=== PATIENT | female | born 1960 | race Caucasian/White ===

== ENCOUNTER → 2016-10-29 | Outpatient (CLI) | payer OTHER ==
[~2016-10-29] MED LIST: ALBU18HF INH; AMLO10TA2 PO; CEFD300C37 PO; CEPH-367 PO; DOXY50CA4 PO; IPRA3AMP NPPB; LEVO50TA5 PO; LEVO750T26 PO; LISI-167 PO; METH4TAB2 PO; OMNIPAQUE 350 MG/ML, 75ML BOTTLE ONE; PRED20TA PO
== END | disposition home or self-care (01) ==
LOC: CFH 08:47
PROVIDERS: ATTEND Internal Medicine Pulmonary Disease
DX: J43.2 Centrilobular emphysema (principal)
CPT/HCPCS: 71260; Q9967

== ENCOUNTER → 2018-04-03 | Outpatient (CLI) | payer OTHER ==
[~2018-04-03] MED LIST changes: -AMLO10TA2 PO; +AMLO10TA6 PO; -IPRA3AMP NPPB; +IPRA3AMP30 NPPB; -OMNIPAQUE 350 MG/ML, 75ML BOTTLE ONE
== END | disposition home or self-care (01) ==
LOC: CFH 14:48
PROVIDERS: ATTEND Internal Medicine
DX: J43.9 Emphysema, unspecified (principal)
CPT/HCPCS: 71250

== ENCOUNTER → 2018-06-04 | Outpatient (CLI) | payer OTHER ==
[~2018-06-04] MED LIST changes: -AMLO10TA6 PO; +AMLO10TA8 PO; +OMNIPAQUE 350 MG/ML, 100ML BOTTLE ONE
[2018-06-04 12:32] LABS: CREATININE 0.69 mg/dL (0.55-1.02)
== END | disposition home or self-care (01) ==
LOC: RAD 11:40
PROVIDERS: ATTEND Nurse Practitioner Family
DX: I65.23 Occlusion and stenosis of bilateral carotid arteries (principal); E87.8 Other disorders of electrolyte and fluid balance, not elsewhere classified
CPT/HCPCS: 36415; 70496; 70498; 82565; Q9967